=== PATIENT | male | born 1975 | race Caucasian/White ===

== ENCOUNTER 2018-08-29 22:17 | Inpatient (IN) | payer OTHER ==
[2018-08-30] MEDS ORDERED: ONDANSETRON 4 MG INJ IV (01:00)
[2018-08-30 05:46] LABS: ADD MAN DIFF? NO
[2018-08-30 05:59] LABS: WHITE BLOOD COUNT 22.8 10^3/ul (4.8-10.8)
[2018-08-30 05:59] LABS: ABNORMAL IP MESSAGE 1; BASOPHILS % 0.2 % (0.0-2.0); EOSINOPHILS # 0.2 10^3/ul (0.0-0.5); EOSINOPHILS % 1.1 % (0.0-7.0); LYMPHOCYTES # 2.6 10^3/ul (0.8-2.9); LYMPHOCYTES % 11.4 % (15.0-51.0); MEAN CORPUSCULAR HGB CONC 33.3 g/dl (32.0-37.0); MEAN CORPUSCULAR VOLUME 95.9 fl (82.0-101.0); MEAN PLATELET VOLUME 12.5 fl (7.4-10.4); MONOCYTE # 3.4 10^3/ul (0.3-0.9); NEUTROPHILS % 70.1 % (39.0-77.0); PLATELET COUNT 119 10^3/UL (140-415); POSITIVE DIFF @See below; RED BLOOD COUNT 2.19 10^6/ul (4.70-6.10); RED CELL DISTRIBUTION WIDTH 26.3 % (11.5-14.5)
[2018-08-30 06:12] LABS: ALANINE AMINOTRANSFERASE 13 IU/L (13-69); ALBUMIN 2.7 g/dl (3.3-4.9); ALBUMIN/GLOBULIN RATIO 0.81; ALKALINE PHOSPHATASE 83 IU/L (42-121); ANION GAP 11 (5-13); ASPARTATE AMINO TRANSFERASE 38 IU/L (15-46); BILIRUBIN,INDIRECT 5.4 mg/dl (0-1.1); BILIRUBIN,TOTAL 24.1 mg/dl (0.2-1.3); BLOOD UREA NITROGEN 47 mg/dl (7-20); CALCIUM 9.2 mg/dl (8.4-10.2); CARBON DIOXIDE 28 mmol/L (21-31); CHLORIDE 98 mmol/L (97-110); CREATININE 4.98 mg/dl (0.61-1.24); Estimated GFR 13 mL/min (>60); GLUCOSE 109 mg/dl (70-220); POTASSIUM 4.4 mmol/L (3.5-5.1); SODIUM 137 mmol/L (135-144)
[2018-08-30] MEDS: LACTULOSE 30ML CUP PO ×3 (07:06→21:42)
[2018-08-30] MEDS: PANTOPRAZOLE (EC) 40 MG TAB PO (07:06)
[2018-08-30] MEDS: CEFTRIAXONE 1 GM/50 ML (PMX) 50 ML IVPB (07:06)
[2018-08-30] MEDS: DOCUSATE SODIUM 100 MG CAP PO ×2 (08:21→21:42)
[2018-08-30] MEDS: SENNA TAB PO (08:22)
[2018-08-30] MEDS: MIDODRINE 5 MG TAB PO ×3 (08:23→17:44)
[2018-08-30 15:56] LABS: IMMEDIATE SPIN CROSSMATCH 1 1
[2018-08-30] MEDS: CEFEPIME 1GM/50 ML (PMX) 50 ML IVPB (20:00)
[2018-08-30] MEDS: ALBUMIN HUMAN 25% 100 ML IV (21:42)
[2018-08-31] MEDS: CEFEPIME 1GM/50 ML (PMX) 50 ML IVPB ×3 (00:32→22:14)
[2018-08-31 05:28] LABS: ABNORMAL IP MESSAGE 1; HEMATOCRIT 23.7 % (42.0-52.0); HEMOGLOBIN 8.1 g/dl (14.0-18.0); MEAN CORPUSCULAR HEMOGLOBIN 31.5 pg (29.0-33.0); MEAN CORPUSCULAR HGB CONC 34.2 g/dl (32.0-37.0); MEAN CORPUSCULAR VOLUME 92.2 fl (82.0-101.0); MEAN PLATELET VOLUME 12.6 fl (7.4-10.4); PLATELET COUNT 119 10^3/UL (140-415); POSITIVE DIFF @See below; RED BLOOD COUNT 2.57 10^6/ul (4.70-6.10); RED CELL DISTRIBUTION WIDTH 24.5 % (11.5-14.5)
[2018-08-31 05:28] LABS: WHITE BLOOD COUNT 26.2 10^3/ul (4.8-10.8)
[2018-08-31 05:52] LABS: ADD MAN DIFF? YES
[2018-08-31] MEDS: PANTOPRAZOLE (EC) 40 MG TAB PO (05:54)
[2018-08-31] MEDS: LACTULOSE 30ML CUP PO ×3 (05:54→22:14)
[2018-08-31 05:57] LABS: INR 3.51; PROTIME 35.2 Sec (11.9-14.9); PT RATIO 2.8
[2018-08-31 05:58] LABS: MAGNESIUM 1.9 mg/dl (1.7-2.5)
[2018-08-31 05:58] LABS: PHOSPHORUS 4.6 mg/dl (2.5-4.9)
[2018-08-31 06:11] LABS: ANION GAP 12 (5-13); BLOOD UREA NITROGEN 52 mg/dl (7-20); CARBON DIOXIDE 26 mmol/L (21-31); CHLORIDE 98 mmol/L (97-110); CREATININE 5.33 mg/dl (0.61-1.24); Estimated GFR 12 mL/min (>60); GLUCOSE 81 mg/dl (70-220); POTASSIUM 4.8 mmol/L (3.5-5.1); SODIUM 136 mmol/L (135-144)
[2018-08-31 07:11] LABS: ANISOCYTOSIS 2+ (0-0); BAND NEUTROPHILS #M 1.5 10^3/ul (0.0-0.6); BAND NEUTROPHILS % (M) 6 % (0-4); BASOPHIL #M 0.5 10^3/ul (0.0-0.0); BASOPHILS % (M) 2 % (0-2); BURR CELLS 2+ (0-0); LYMPHOCYTES #M 2.6 10^3/ul (0.8-2.9); LYMPHOCYTES % (M) 10 % (15-51); MONOCYTE #M 2.3 10^3/ul (0.3-0.9); MONOCYTES % (M) 9 % (0-11); PLATELET ESTIMATE DECREASED; POIKILOCYTOSIS 3+ (0-0); POLYCHROMASIA 1+ (0-0); SEG NEUT #M 19.5 10^3/ul (1.6-7.5); SEGMENTED NEUTROPHILS (M) % 73 % (39-77); SMUDGE%M 6 % (0-0); SPHEROCYTES 1+ (0-0)
[2018-08-31] MEDS: DOCUSATE SODIUM 100 MG CAP PO (09:00)
[2018-08-31] MEDS: SENNA TAB PO (09:00)
[2018-08-31] MEDS: ALBUMIN HUMAN 25% 100 ML IV ×3 (10:30→18:53)
[2018-08-31] MEDS: MIDODRINE 5 MG TAB PO ×3 (10:59→18:58)
[2018-08-31 13:21] LABS: HEPATITIS B SURFACE ANTIGEN NEGATIVE (NEGATIVE)
[2018-08-31] MEDS ORDERED: DOCUSATE SODIUM 100 MG CAP PO (14:00)
[2018-08-31] MEDS ORDERED: SENNA TAB PO (14:00)
[2018-08-31] MEDS: EPOETIN ALFA-EPBX (ESRD) 4,000 UNIT/ML VIAL SC (18:54)
[2018-08-31] MEDS: PHYTONADIONE 10 MG/ML INJ SC (19:00)
[2018-08-31] MEDS: BALSAM PERU/CASTOR OIL 60 GM TUBE TOP (22:13)
[2018-09-01] MEDS: ALBUMIN HUMAN 25% 100 ML IV (03:38)
[2018-09-01 05:59] LABS: ABNORMAL IP MESSAGE 1; HEMATOCRIT 20.8 % (42.0-52.0); HEMOGLOBIN 7.3 g/dl (14.0-18.0); MEAN CORPUSCULAR HEMOGLOBIN 32.4 pg (29.0-33.0); MEAN CORPUSCULAR HGB CONC 35.1 g/dl (32.0-37.0); MEAN CORPUSCULAR VOLUME 92.4 fl (82.0-101.0); MEAN PLATELET VOLUME 12.4 fl (7.4-10.4); PLATELET COUNT 102 10^3/UL (140-415); POSITIVE DIFF @See below; RED BLOOD COUNT 2.25 10^6/ul (4.70-6.10); RED CELL DISTRIBUTION WIDTH 24.8 % (11.5-14.5)
[2018-09-01 05:59] LABS: WHITE BLOOD COUNT 25.4 10^3/ul (4.8-10.8)
[2018-09-01 06:16] LABS: ADD MAN DIFF? YES
[2018-09-01 06:27] LABS: AMMONIA 22 umol/l (9-30)
[2018-09-01] MEDS: PANTOPRAZOLE (EC) 40 MG TAB PO (06:32)
[2018-09-01] MEDS: LACTULOSE 30ML CUP PO ×3 (06:32→22:00)
[2018-09-01 06:37] LABS: ANION GAP 11 (5-13); BLOOD UREA NITROGEN 44 mg/dl (7-20); CALCIUM 9.4 mg/dl (8.4-10.2); CARBON DIOXIDE 27 mmol/L (21-31); CHLORIDE 98 mmol/L (97-110); CREATININE 4.44 mg/dl (0.61-1.24); Estimated GFR 15 mL/min (>60); GLUCOSE 117 mg/dl (70-220); POTASSIUM 4.8 mmol/L (3.5-5.1); SODIUM 136 mmol/L (135-144)
[2018-09-01 09:14] LABS: ACANTHOCYTES 2+ (0-0); ANISOCYTOSIS 3+ (0-0); BAND NEUTROPHILS #M 0.2 10^3/ul (0.0-0.6); BAND NEUTROPHILS % (M) 1 % (0-4); BASOPHIL #M 0.2 10^3/ul (0.0-0.0); BASOPHILS % (M) 1 % (0-2); BURR CELLS 2+ (0-0); EOSINOPHILS % (M) 3 % (0-7); GIANT THROMBO% (M) 1 % (0-0); HYPOCHROMASIA 1+ (0-0); LYMPHOCYTES #M 3.3 10^3/ul (0.8-2.9); LYMPHOCYTES % (M) 13 % (15-51); MONOCYTE #M 1.2 10^3/ul (0.3-0.9); MONOCYTES % (M) 5 % (0-11); MYELOCYTES #M 0.2 10^3/ul (0.0-0.0); MYELOCYTES % (M) 1 % (0-0); PLATELET ESTIMATE DECREASED; POIKILOCYTOSIS 3+ (0-0); POLYCHROMASIA 1+ (0-0); SCHISTOCYTES 1+ (0-0); SEG NEUT #M 19.4 10^3/ul (1.6-7.5); SEGMENTED NEUTROPHILS (M) % 76 % (39-77); SMUDGE%M 5 % (0-0); TARGET CELLS 2+ (0-0)
[2018-09-01] MEDS: MIDODRINE 5 MG TAB PO ×3 (10:36→19:12)
[2018-09-01] MEDS: BALSAM PERU/CASTOR OIL 60 GM TUBE TOP ×2 (10:37→21:15)
[2018-09-01] MEDS: CEFEPIME 1GM/50 ML (PMX) 50 ML IVPB ×2 (10:37→21:15)
[2018-09-01] MEDS: MULTIVIT/CA CARB/B CMPLX/FA TAB PO (10:37)
[2018-09-02 05:18] LABS: WHITE BLOOD COUNT 27.7 10^3/ul (4.8-10.8)
[2018-09-02 05:18] LABS: ABNORMAL IP MESSAGE 1; HEMOGLOBIN 7.3 g/dl (14.0-18.0); MEAN CORPUSCULAR HEMOGLOBIN 32.2 pg (29.0-33.0); MEAN CORPUSCULAR HGB CONC 34.8 g/dl (32.0-37.0); MEAN CORPUSCULAR VOLUME 92.5 fl (82.0-101.0); MEAN PLATELET VOLUME 12.8 fl (7.4-10.4); PLATELET COUNT 108 10^3/UL (140-415); POSITIVE DIFF @See below; RED BLOOD COUNT 2.27 10^6/ul (4.70-6.10); RED CELL DISTRIBUTION WIDTH 24.9 % (11.5-14.5)
[2018-09-02 05:30] LABS: ADD MAN DIFF? YES
[2018-09-02 05:48] LABS: ALANINE AMINOTRANSFERASE 12 IU/L (13-69); ALBUMIN 2.8 g/dl (3.3-4.9); ALKALINE PHOSPHATASE 105 IU/L (42-121); ANION GAP 16 (5-13); ASPARTATE AMINO TRANSFERASE 40 IU/L (15-46); BILIRUBIN,INDIRECT 5.5 mg/dl (0-1.1); BILIRUBIN,TOTAL 25.3 mg/dl (0.2-1.3); BLOOD UREA NITROGEN 50 mg/dl (7-20); CALCIUM 9.4 mg/dl (8.4-10.2); CARBON DIOXIDE 23 mmol/L (21-31); CHLORIDE 98 mmol/L (97-110); CREATININE 5.19 mg/dl (0.61-1.24); Estimated GFR 12 mL/min (>60); GLUCOSE 85 mg/dl (70-220); POTASSIUM 4.9 mmol/L (3.5-5.1); SODIUM 137 mmol/L (135-144); TOTAL PROTEIN 6.3 g/dl (6.1-8.1)
[2018-09-02] MEDS: PANTOPRAZOLE (EC) 40 MG TAB PO (06:48)
[2018-09-02] MEDS: LACTULOSE 30ML CUP PO ×3 (06:48→21:23)
[2018-09-02 07:11] LABS: ACANTHOCYTES 1+ (0-0); ANISOCYTOSIS 3+ (0-0); BAND NEUTROPHILS #M 0.5 10^3/ul (0.0-0.6); BAND NEUTROPHILS % (M) 2 % (0-4); BASOPHIL #M 0.5 10^3/ul (0.0-0.0); BASOPHILS % (M) 2 % (0-2); BURR CELLS 3+ (0-0); EOSINOPHILS % (M) 1 % (0-7); LYMPHOCYTES #M 2.7 10^3/ul (0.8-2.9); LYMPHOCYTES % (M) 10 % (15-51); METAMYELOCYTES #M 0.2 10^3/ul (0.0-0.0); METAMYELOCYTES %M 1 % (0-0); MICROCYTOSIS 1+ (0-0); MONOCYTE #M 1.6 10^3/ul (0.3-0.9); MONOCYTES % (M) 6 % (0-11); PLATELET ESTIMATE DECREASED; POIKILOCYTOSIS 3+ (0-0); SCHISTOCYTES 1+ (0-0); SEG NEUT #M 21.7 10^3/ul (1.6-7.5); SEGMENTED NEUTROPHILS (M) % 78 % (39-77); SMUDGE%M 8 % (0-0); TARGET CELLS 1+ (0-0)
[2018-09-02] MEDS: CEFEPIME 1GM/50 ML (PMX) 50 ML IVPB ×2 (08:28→21:22)
[2018-09-02] MEDS: MULTIVIT/CA CARB/B CMPLX/FA TAB PO (08:29)
[2018-09-02] MEDS: BALSAM PERU/CASTOR OIL 60 GM TUBE TOP ×2 (08:29→21:23)
[2018-09-02] MEDS: MIDODRINE 5 MG TAB PO ×3 (08:29→17:57)
[2018-09-02 12:03] LABS: ALPHA FETOPROTEIN 1.28 IU/L (0.00-7.21)
[2018-09-02 15:53] LABS: INR 3.05; PROTIME 31.6 Sec (11.9-14.9); PT RATIO 2.5
[2018-09-02 16:05] LABS: PARTIAL THROMBOPLASTIN TIME 92.6 Sec (23.0-35.0)
[2018-09-02] MEDS: PHYTONADIONE 10 MG/ML INJ SC (17:57)
[2018-09-03] MEDS: PANTOPRAZOLE (EC) 40 MG TAB PO (06:28)
[2018-09-03] MEDS: LACTULOSE 30ML CUP PO ×3 (06:28→20:33)
[2018-09-03] MEDS: CEFEPIME 1GM/50 ML (PMX) 50 ML IVPB ×2 (08:15→20:33)
[2018-09-03] MEDS: BALSAM PERU/CASTOR OIL 60 GM TUBE TOP ×2 (08:16→20:33)
[2018-09-03] MEDS: MIDODRINE 5 MG TAB PO ×3 (08:16→16:42)
[2018-09-03] MEDS: MULTIVIT/CA CARB/B CMPLX/FA TAB PO (08:16)
[2018-09-03 08:19] LABS: ADD MAN DIFF? NO
[2018-09-03 08:21] LABS: WHITE BLOOD COUNT 26.1 10^3/ul (4.8-10.8)
[2018-09-03 08:21] LABS: HEMATOCRIT 18.9 % (42.0-52.0); MEAN CORPUSCULAR HEMOGLOBIN 32.8 pg (29.0-33.0); MEAN CORPUSCULAR HGB CONC 34.9 g/dl (32.0-37.0); PLATELET COUNT 91 10^3/UL (140-415); RED BLOOD COUNT 2.01 10^6/ul (4.70-6.10); RED CELL DISTRIBUTION WIDTH 25.3 % (11.5-14.5)
[2018-09-03 08:22] LABS: ABNORMAL IP MESSAGE 1; BASOPHIL # 0.1 10^3/ul (0.0-0.1); BASOPHILS % 0.2 % (0.0-2.0); EOSINOPHILS # 0.3 10^3/ul (0.0-0.5); LYMPHOCYTES # 2.8 10^3/ul (0.8-2.9); LYMPHOCYTES % 10.8 % (15.0-51.0); MONOCYTES % 11.3 % (0.0-11.0); NEUTROPHIL # 19.6 10^3/ul (1.6-7.5); POSITIVE DIFF @See below
[2018-09-03 08:28] LABS: HEMOGLOBIN 6.6 g/dl (14.0-18.0)
[2018-09-03 08:41] LABS: INR 3.15; PROTIME 32.4 Sec (11.9-14.9); PT RATIO 2.5
[2018-09-03 08:50] LABS: ALANINE AMINOTRANSFERASE 16 IU/L (13-69); ALBUMIN 2.8 g/dl (3.3-4.9); ALBUMIN/GLOBULIN RATIO 0.77; ALKALINE PHOSPHATASE 96 IU/L (42-121); ANION GAP 16 (5-13); ASPARTATE AMINO TRANSFERASE 41 IU/L (15-46); BILIRUBIN,TOTAL 24.7 mg/dl (0.2-1.3); BLOOD UREA NITROGEN 57 mg/dl (7-20); CALCIUM 9.7 mg/dl (8.4-10.2); CARBON DIOXIDE 22 mmol/L (21-31); CHLORIDE 98 mmol/L (97-110); CREATININE 5.76 mg/dl (0.61-1.24); Estimated GFR 11 mL/min (>60); GLUCOSE 69 mg/dl (70-220); POTASSIUM 4.9 mmol/L (3.5-5.1); SODIUM 136 mmol/L (135-144); TOTAL PROTEIN 6.4 g/dl (6.1-8.1)
[2018-09-03 08:52] LABS: PARTIAL THROMBOPLASTIN TIME 100.8 Sec (23.0-35.0)
[2018-09-03] MEDS: SOD CHLORIDE 0.9% 250 ML IV* (09:12)
[2018-09-03 11:43] LABS: IMMEDIATE SPIN CROSSMATCH 1
[2018-09-03] MEDS: ALBUMIN HUMAN 25% 100 ML IV (12:00)
[2018-09-03] MEDS: EPOETIN ALFA-EPBX (ESRD) 4,000 UNIT/ML VIAL SC (16:43)
[2018-09-03 22:32] LABS: AADO2 Arterial 122.3 mmHg (7.0-24.0); Arterial Base Excess -0.8 mmol/L (-3.0-3); Arterial Blood Gas Oxygen Sat 96.2 mmHG (95.0-98.0); Arterial COHb 2.5 % (0.0-3.0); Arterial Fraction of Oxyhgb 93.6 % (93.0-99.0); Arterial MetHb 0.2 % (0.0-1.5); Arterial pCO2 40.4 mmhg (35-45); MODE NASAL CANNULA; Site LB
[2018-09-03] MEDS: LEVALBUTEROL (NEB) 0.63 MG/3 ML AMP HHN (22:42)
[2018-09-04] MEDS: LACTULOSE 30ML CUP PO ×3 (06:00→21:03)
[2018-09-04 06:11] LABS: ADD MAN DIFF? NO
[2018-09-04 06:22] LABS: WHITE BLOOD COUNT 24.7 10^3/ul (4.8-10.8)
[2018-09-04 06:22] LABS: ABNORMAL IP MESSAGE 1; BASOPHIL # 0.1 10^3/ul (0.0-0.1); BASOPHILS % 0.4 % (0.0-2.0); EOSINOPHILS # 0.2 10^3/ul (0.0-0.5); EOSINOPHILS % 0.9 % (0.0-7.0); HEMOGLOBIN 7.7 g/dl (14.0-18.0); LYMPHOCYTES # 2.5 10^3/ul (0.8-2.9); LYMPHOCYTES % 10.3 % (15.0-51.0); MEAN CORPUSCULAR HEMOGLOBIN 32.2 pg (29.0-33.0); MEAN CORPUSCULAR VOLUME 92.1 fl (82.0-101.0); MEAN PLATELET VOLUME 13.2 fl (7.4-10.4); MONOCYTE # 3.3 10^3/ul (0.3-0.9); MONOCYTES % 13.3 % (0.0-11.0); NEUTROPHIL # 18.1 10^3/ul (1.6-7.5); NEUTROPHILS % 73.1 % (39.0-77.0); PLATELET COUNT 79 10^3/UL (140-415); POSITIVE DIFF @See below; RED BLOOD COUNT 2.39 10^6/ul (4.70-6.10); RED CELL DISTRIBUTION WIDTH 22.3 % (11.5-14.5)
[2018-09-04] MEDS: PANTOPRAZOLE (EC) 40 MG TAB PO (06:44)
[2018-09-04 06:53] LABS: PHOSPHORUS 4.1 mg/dl (2.5-4.9)
[2018-09-04 07:18] LABS: ALANINE AMINOTRANSFERASE 14 IU/L (13-69); ALBUMIN 2.8 g/dl (3.3-4.9); ALBUMIN/GLOBULIN RATIO 0.77; ALKALINE PHOSPHATASE 81 IU/L (42-121); ANION GAP 13 (5-13); ASPARTATE AMINO TRANSFERASE 42 IU/L (15-46); BILIRUBIN,INDIRECT 5.6 mg/dl (0-1.1); BLOOD UREA NITROGEN 38 mg/dl (7-20); CALCIUM 9.1 mg/dl (8.4-10.2); CARBON DIOXIDE 26 mmol/L (21-31); CHLORIDE 98 mmol/L (97-110); CREATININE 3.91 mg/dl (0.61-1.24); Estimated GFR 17 mL/min (>60); GLUCOSE 116 mg/dl (70-220); SODIUM 137 mmol/L (135-144); TOTAL PROTEIN 6.4 g/dl (6.1-8.1)
[2018-09-04 07:42] LABS: BILIRUBIN,TOTAL 26.5 mg/dl (0.2-1.3)
[2018-09-04 08:00] LABS: ANISOCYTOSIS 2+ (0-0); BAND NEUTROPHILS #M 1.7 10^3/ul (0.0-0.6); BAND NEUTROPHILS % (M) 7 % (0-4); BASOPHIL #M 0.2 10^3/ul (0.0-0.0); BASOPHILS % (M) 1 % (0-2); BURR CELLS 3+ (0-0); HYPOCHROMASIA 1+ (0-0); LYMPHOCYTES #M 2.2 10^3/ul (0.8-2.9); LYMPHOCYTES % (M) 9 % (15-51); MICROCYTOSIS 1+ (0-0); MONOCYTE #M 1.2 10^3/ul (0.3-0.9); MONOCYTES % (M) 5 % (0-11); PLATELET ESTIMATE DECREASED; POIKILOCYTOSIS 3+ (0-0); POLYCHROMASIA 2+ (0-0); REACTIVE LYMPHOCYTES #M 0.4 10^3/ul (0.0-0.0); REACTIVE LYMPHOCYTES% (M) 2 % (0-0); SEG NEUT #M 19.2 10^3/ul (1.6-7.5); SEGMENTED NEUTROPHILS (M) % 76 % (39-77); SPHEROCYTES 1+ (0-0)
[2018-09-04] MEDS: MULTIVIT/CA CARB/B CMPLX/FA TAB PO (08:36)
[2018-09-04] MEDS: CEFEPIME 1GM/50 ML (PMX) 50 ML IVPB (08:36)
[2018-09-04] MEDS: BALSAM PERU/CASTOR OIL 60 GM TUBE TOP ×2 (08:36→20:46)
[2018-09-04] MEDS: MIDODRINE 5 MG TAB PO ×3 (08:36→18:23)
[2018-09-04] MEDS: BUMETANIDE 1 MG INJ IV (12:00)
[2018-09-04] MEDS: PHYTONADIONE 10 MG/ML INJ SC (12:33)
[2018-09-04] MEDS: ALBUMIN HUMAN 25% 100 ML IV ×2 (12:34→20:47)
[2018-09-04 12:56] LABS: INR 3.28; PROTIME 33.4 Sec (11.9-14.9); PT RATIO 2.6
[2018-09-04 13:14] LABS: PARTIAL THROMBOPLASTIN TIME 88.3 Sec (23.0-35.0)
[2018-09-04] MEDS: PHYTONADIONE 5 MG in DEXTROSE 5% 50 ML IVPB (18:34)
[2018-09-05] MEDS: ALBUMIN HUMAN 25% 100 ML IV ×3 (04:02→18:06)
[2018-09-05] MEDS: LACTULOSE 30ML CUP PO ×3 (05:16→21:18)
[2018-09-05] MEDS: HYDROCODONE/APAP (5/325) TAB PO (05:16)
[2018-09-05] MEDS: PANTOPRAZOLE (EC) 40 MG TAB PO (05:16)
[2018-09-05] MEDS: LEVALBUTEROL (NEB) 0.63 MG/3 ML AMP HHN (05:40)
[2018-09-05 06:01] LABS: WHITE BLOOD COUNT 28.3 10^3/ul (4.8-10.8)
[2018-09-05 06:01] LABS: ABNORMAL IP MESSAGE 1; HEMATOCRIT 20.1 % (42.0-52.0); MEAN CORPUSCULAR HEMOGLOBIN 32.4 pg (29.0-33.0); MEAN CORPUSCULAR HGB CONC 34.8 g/dl (32.0-37.0); MEAN CORPUSCULAR VOLUME 93.1 fl (82.0-101.0); MEAN PLATELET VOLUME 12.5 fl (7.4-10.4); PLATELET COUNT 69 10^3/UL (140-415); POSITIVE DIFF @See below; RED BLOOD COUNT 2.16 10^6/ul (4.70-6.10); RED CELL DISTRIBUTION WIDTH 22.4 % (11.5-14.5)
[2018-09-05 06:08] LABS: AADO2 Arterial 583.1 mmHg (7.0-24.0); Allen Test ACCEPTAB; Arterial Base Excess -15.2 mmol/L (-3.0-3); Arterial Blood Gas Oxygen Sat 87.4 mmHG (95.0-98.0); Arterial COHb 1.8 % (0.0-3.0); Arterial Fraction of Oxyhgb 85.2 % (93.0-99.0); Arterial HCO3 13.7 mmol/L (22.0-26.0); Arterial MetHb 0.7 % (0.0-1.5); Arterial pCO2 53.2 mmhg (35-45); MODE MASK - NRB; Site Right Radial
[2018-09-05 06:11] LABS: ADD MAN DIFF? YES
[2018-09-05 06:17] LABS: PHOSPHORUS 4.5 mg/dl (2.5-4.9)
[2018-09-05 06:17] LABS: INR 2.81; MAGNESIUM 1.9 mg/dl (1.7-2.5); PROTIME 29.6 Sec (11.9-14.9); PT RATIO 2.3
[2018-09-05] MEDS ORDERED: NA BICARBONATE 8.4% 50 ML SYG (06:23)
[2018-09-05 06:29] LABS: ALANINE AMINOTRANSFERASE 15 IU/L (13-69); ALBUMIN/GLOBULIN RATIO 0.83; ALKALINE PHOSPHATASE 98 IU/L (42-121); ANION GAP 19 (5-13); ASPARTATE AMINO TRANSFERASE 38 IU/L (15-46); BILIRUBIN,INDIRECT 5.7 mg/dl (0-1.1); BILIRUBIN,TOTAL 25.7 mg/dl (0.2-1.3); BLOOD UREA NITROGEN 43 mg/dl (7-20); CALCIUM 9.4 mg/dl (8.4-10.2); CARBON DIOXIDE 22 mmol/L (21-31); CHLORIDE 97 mmol/L (97-110); CREATININE 4.32 mg/dl (0.61-1.24); Estimated GFR 15 mL/min (>60); GLUCOSE 115 mg/dl (70-220); POTASSIUM 4.3 mmol/L (3.5-5.1); SODIUM 138 mmol/L (135-144); TOTAL PROTEIN 6.6 g/dl (6.1-8.1)
[2018-09-05] MEDS: LIDOCAINE 1% (MPF) 5 ML VIAL SC (06:30)
[2018-09-05] MEDS: NA BICARBONATE 8.4% 50 ML SYG IV ×2 (06:53→06:58)
[2018-09-05 07:03] LABS: PARTIAL THROMBOPLASTIN TIME 85.3 Sec (23.0-35.0)
[2018-09-05 07:10] LABS: WHITE BLOOD COUNT 32.4 10^3/ul (4.8-10.8)
[2018-09-05 07:10] LABS: ABNORMAL IP MESSAGE 1; HEMATOCRIT 21.4 % (42.0-52.0); HEMOGLOBIN 7.2 g/dl (14.0-18.0); MEAN CORPUSCULAR HEMOGLOBIN 32.3 pg (29.0-33.0); MEAN CORPUSCULAR HGB CONC 33.6 g/dl (32.0-37.0); MEAN PLATELET VOLUME 12.6 fl (7.4-10.4); NUCLEATED RED BLOOD CELLS% 0.1 /100WBC (0.0-0.0); PLATELET COUNT 77 10^3/UL (140-415); POSITIVE DIFF @See below; RED BLOOD COUNT 2.23 10^6/ul (4.70-6.10); RED CELL DISTRIBUTION WIDTH 23.2 % (11.5-14.5)
[2018-09-05 07:18] LABS: ADD MAN DIFF? YES
[2018-09-05 07:28] LABS: AMMONIA 90 umol/l (9-30)
[2018-09-05 07:29] LABS: ALANINE AMINOTRANSFERASE 14 IU/L (13-69); ALBUMIN 3.6 g/dl (3.3-4.9); ALKALINE PHOSPHATASE 99 IU/L (42-121); ANION GAP 20 (5-13); ASPARTATE AMINO TRANSFERASE 41 IU/L (15-46); BLOOD UREA NITROGEN 43 mg/dl (7-20); CALCIUM 9.3 mg/dl (8.4-10.2); CARBON DIOXIDE 26 mmol/L (21-31); CHLORIDE 95 mmol/L (97-110); CREATININE 4.57 mg/dl (0.61-1.24); Estimated GFR 14 mL/min (>60); GLUCOSE 114 mg/dl (70-220); POTASSIUM 5.2 mmol/L (3.5-5.1); SODIUM 141 mmol/L (135-144); TOTAL PROTEIN 7.6 g/dl (6.1-8.1)
[2018-09-05] MEDS: MIDAZOLAM (DRIP) 50 mg/50 mL 50 ML IV ×3 (07:29→21:44)
[2018-09-05 07:31] LABS: LACTIC ACID 4.3 mmol/L (0.5-2.0)
[2018-09-05] MEDS: FENTAnyl (DRIP) 1000 mcg/100mL 100 ML IV ×2 (07:40→21:48)
[2018-09-05 07:47] LABS: ANISOCYTOSIS 3+ (0-0); BAND NEUTROPHILS #M 0.2 10^3/ul (0.0-0.6); BAND NEUTROPHILS % (M) 1 % (0-4); BASOPHIL #M 0.2 10^3/ul (0.0-0.0); BASOPHILS % (M) 1 % (0-2); BURR CELLS 2+ (0-0); EOSINOPHILS % (M) 2 % (0-7); GIANT THROMBO% (M) 3 % (0-0); LYMPHOCYTES #M 2.8 10^3/ul (0.8-2.9); LYMPHOCYTES % (M) 10 % (15-51); MONOCYTE #M 1.4 10^3/ul (0.3-0.9); MONOCYTES % (M) 5 % (0-11); PLATELET ESTIMATE DECREASED; POIKILOCYTOSIS 2+ (0-0); SEGMENTED NEUTROPHILS (M) % 81 % (39-77); SMUDGE%M 7 % (0-0); TARGET CELLS 1+ (0-0)
[2018-09-05 07:48] LABS: BILIRUBIN,INDIRECT 5.9 mg/dl (0-1.1); BILIRUBIN,TOTAL 28.4 mg/dl (0.2-1.3)
[2018-09-05] MEDS: NORepinephrine 8MG/250 ML (PMX 250 ML IV ×2 (08:07→13:53)
[2018-09-05 08:21] LABS: ANISOCYTOSIS 3+ (0-0); BURR CELLS 3+ (0-0); EOSINOPHILS % (M) 2 % (0-7); LYMPHOCYTES #M 6.4 10^3/ul (0.8-2.9); LYMPHOCYTES % (M) 20 % (15-51); MONOCYTE #M 0.6 10^3/ul (0.3-0.9); MONOCYTES % (M) 2 % (0-11); MYELOCYTES #M 1.2 10^3/ul (0.0-0.0); MYELOCYTES % (M) 4 % (0-0); PLATELET ESTIMATE DECREASED; POIKILOCYTOSIS 3+ (0-0); SEGMENTED NEUTROPHILS (M) % 72 % (39-77); SMUDGE%M 9 % (0-0); TARGET CELLS 1+ (0-0)
[2018-09-05] MEDS ORDERED: VANCOMYCIN IV PER PHARMACY XX (08:30)
[2018-09-05 08:53] LABS: AADO2 Arterial 532.8 mmHg (7.0-24.0); Allen Test ACCEPTAB; Arterial Base Excess -2.5 mmol/L (-3.0-3); Arterial Blood Gas Oxygen Sat 99.1 mmHG (95.0-98.0); Arterial COHb 2.2 % (0.0-3.0); Arterial Fraction of Oxyhgb 96.3 % (93.0-99.0); Arterial HCO3 22.2 mmol/L (22.0-26.0); Arterial MetHb 0.6 % (0.0-1.5); Arterial pCO2 37.3 mmhg (35-45); MODE VENT - AC; Site Right Brachial
[2018-09-05] MEDS: MULTIVIT/CA CARB/B CMPLX/FA TAB PO (09:00)
[2018-09-05] MEDS: MIDODRINE 5 MG TAB PO ×3 (09:00→17:29)
[2018-09-05] MEDS: CEFEPIME 1GM/50 ML (PMX) 50 ML IVPB (09:23)
[2018-09-05] MEDS: BALSAM PERU/CASTOR OIL 60 GM TUBE TOP ×2 (09:23→21:18)
[2018-09-05] MEDS: VANCOMYCIN HCL 1.5 GM in SOD CHLORIDE 0.9% 250 ML IVPB (10:30)
[2018-09-05] MEDS: BUMETANIDE 1 MG INJ IV ×2 (11:16→18:03)
[2018-09-05] MEDS: PHYTONADIONE 10 MG/ML INJ SC (11:16)
[2018-09-05 11:53] LABS: IMMEDIATE SPIN CROSSMATCH 1 4
[2018-09-05 13:21] LABS: IMMEDIATE SPIN CROSSMATCH 1
[2018-09-05] MEDS: EPOETIN ALFA-EPBX (ESRD) 4,000 UNIT/ML VIAL SC (17:00)
[2018-09-05] MEDS: LIDOCAINE 1% (MPF) 5 ML VIAL (17:13)
[2018-09-05 17:22] LABS: ADD MAN DIFF? NO
[2018-09-05 17:24] LABS: ABNORMAL IP MESSAGE 1; BASOPHILS % 0.2 % (0.0-2.0); EOSINOPHILS # 0.1 10^3/ul (0.0-0.5); EOSINOPHILS % 0.4 % (0.0-7.0); HEMATOCRIT 15.9 % (42.0-52.0); LYMPHOCYTES # 2.1 10^3/ul (0.8-2.9); MEAN CORPUSCULAR HEMOGLOBIN 33.1 pg (29.0-33.0); MEAN CORPUSCULAR HGB CONC 35.2 g/dl (32.0-37.0); MEAN CORPUSCULAR VOLUME 94.1 fl (82.0-101.0); MEAN PLATELET VOLUME 13.3 fl (7.4-10.4); MONOCYTE # 2.5 10^3/ul (0.3-0.9); MONOCYTES % 9.3 % (0.0-11.0); NEUTROPHIL # 21.4 10^3/ul (1.6-7.5); NEUTROPHILS % 80.1 % (39.0-77.0); PLATELET COUNT 66 10^3/UL (140-415); POSITIVE DIFF @See below; RED BLOOD COUNT 1.69 10^6/ul (4.70-6.10); RED CELL DISTRIBUTION WIDTH 22.6 % (11.5-14.5)
[2018-09-05 17:24] LABS: WHITE BLOOD COUNT 26.6 10^3/ul (4.8-10.8)
[2018-09-05 17:32] LABS: HEMOGLOBIN 5.6 g/dl (14.0-18.0)
[2018-09-05 17:45] LABS: INR 2.14; PT RATIO 1.9
[2018-09-05] MEDS: PANTOPRAZOLE 40 MG INJ IV (18:03)
[2018-09-05 18:18] LABS: FLUID GLUCOSE 75 mg/dl; FLUID LD 414 U/L; FLUID TYPE ASCITES FLUID; FLUID TYPE ASCITIES FLUID
[2018-09-05 18:19] LABS: FLUID TOTAL PROTEIN 2.6 g/dl
[2018-09-05 18:28] LABS: ACANTHOCYTES 2+ (0-0); ANISOCYTOSIS 2+ (0-0); BAND NEUTROPHILS #M 0.2 10^3/ul (0.0-0.6); BAND NEUTROPHILS % (M) 1 % (0-4); ECHINOCYTOSIS 1+ (0-0); ELLIPTO 1+ (0-0); LYMPHOCYTES #M 2.1 10^3/ul (0.8-2.9); LYMPHOCYTES % (M) 8 % (15-51); MONOCYTE #M 2.9 10^3/ul (0.3-0.9); MONOCYTES % (M) 11 % (0-11); OVALOCYTES 1+ (0-0); POIKILOCYTOSIS 2+ (0-0); PROMYELOCYTES #M 0.5 10^3/ul (0-0); PROMYELOCYTES % (M) 2 % (0-0); SCHISTOCYTES 1+ (0-0); SEG NEUT #M 20.8 10^3/ul (1.6-7.5); SEGMENTED NEUTROPHILS (M) % 78 % (39-77); SMUDGE%M 53 % (0-0)
[2018-09-05 18:42] LABS: FLD TYPE ASCITIS
[2018-09-05 18:42] LABS: FLD CLARITY CLOUDY; FLD COLOR RED; FLD MN% 28.3 %; FLD PMN% 71.7 %; FLD RBC 137000 /uL; FLD WBC 954 /cmm
[2018-09-05] MEDS: SUCCINYLCHOLINE CHLORIDE 100 MG/5 ML SYG IV (20:10)
[2018-09-05] MEDS: ETOMIDATE 20 MG INJ IV (20:10)
[2018-09-06] MEDS: NORepinephrine 8MG/250 ML (PMX 250 ML IV ×4 (00:43→20:06)
[2018-09-06 01:41] LABS: INR 2.36; PROTIME 25.9 Sec (11.9-14.9)
[2018-09-06 01:47] LABS: PARTIAL THROMBOPLASTIN TIME 70.7 Sec (23.0-35.0)
[2018-09-06] MEDS: ALBUMIN HUMAN 25% 100 ML IV ×3 (02:24→17:46)
[2018-09-06 05:57] LABS: WHITE BLOOD COUNT 29.3 10^3/ul (4.8-10.8)
[2018-09-06 05:57] LABS: ABNORMAL IP MESSAGE 1; HEMATOCRIT 22.4 % (42.0-52.0); HEMOGLOBIN 7.8 g/dl (14.0-18.0); MEAN CORPUSCULAR HEMOGLOBIN 31.2 pg (29.0-33.0); MEAN CORPUSCULAR HGB CONC 34.8 g/dl (32.0-37.0); MEAN CORPUSCULAR VOLUME 89.6 fl (82.0-101.0); MEAN PLATELET VOLUME 13.2 fl (7.4-10.4); PLATELET COUNT 61 10^3/UL (140-415); POSITIVE DIFF @See below; RED CELL DISTRIBUTION WIDTH 19.5 % (11.5-14.5)
[2018-09-06 06:09] LABS: ADD MAN DIFF? YES
[2018-09-06 06:13] LABS: ALANINE AMINOTRANSFERASE 10 IU/L (13-69); ALBUMIN/GLOBULIN RATIO 1.14; ALKALINE PHOSPHATASE 94 IU/L (42-121); ANION GAP 21 (5-13); ASPARTATE AMINO TRANSFERASE 47 IU/L (15-46); BILIRUBIN,INDIRECT 7.7 mg/dl (0-1.1); BLOOD UREA NITROGEN 35 mg/dl (7-20); CALCIUM 10.3 mg/dl (8.4-10.2); CARBON DIOXIDE 24 mmol/L (21-31); CHLORIDE 95 mmol/L (97-110); Estimated GFR 19 mL/min (>60); GLUCOSE 53 mg/dl (70-220); POTASSIUM 3.8 mmol/L (3.5-5.1); SODIUM 140 mmol/L (135-144); TOTAL PROTEIN 7.5 g/dl (6.1-8.1)
[2018-09-06 06:21] LABS: BILIRUBIN,TOTAL 27.3 mg/dl (0.2-1.3)
[2018-09-06 06:30] LABS: PROTIME 24.5 Sec (11.9-14.9); PT RATIO 1.9
[2018-09-06] MEDS: BUMETANIDE 1 MG INJ IV ×2 (06:38→17:46)
[2018-09-06] MEDS: LACTULOSE 30ML CUP PO ×3 (06:38→21:10)
[2018-09-06] MEDS: PANTOPRAZOLE 40 MG INJ IV ×2 (06:38→17:45)
[2018-09-06 08:42] LABS: ACANTHOCYTES 1+ (0-0); ANISOCYTOSIS 2+ (0-0); BAND NEUTROPHILS % (M) 7 % (0-4); BASOPHIL #M 0.2 10^3/ul (0.0-0.0); BASOPHILS % (M) 1 % (0-2); BURR CELLS 2+ (0-0); EOSINOPHILS % (M) 1 % (0-7); LYMPHOCYTES #M 1.4 10^3/ul (0.8-2.9); LYMPHOCYTES % (M) 5 % (15-51); MICROCYTOSIS 1+ (0-0); MONOCYTE #M 1.4 10^3/ul (0.3-0.9); MONOCYTES % (M) 5 % (0-11); MYELOCYTES #M 1.1 10^3/ul (0.0-0.0); MYELOCYTES % (M) 4 % (0-0); PLATELET ESTIMATE DECREASED; POIKILOCYTOSIS 3+ (0-0); POLYCHROMASIA 1+ (0-0); PROMYELOCYTES #M 0.2 10^3/ul (0-0); PROMYELOCYTES % (M) 1 % (0-0); SEG NEUT #M 22.9 10^3/ul (1.6-7.5); SEGMENTED NEUTROPHILS (M) % 76 % (39-77); SMUDGE%M 21 % (0-0)
[2018-09-06] MEDS: MULTIVIT/CA CARB/B CMPLX/FA TAB PO (08:43)
[2018-09-06] MEDS: MIDODRINE 5 MG TAB PO ×3 (08:43→17:46)
[2018-09-06] MEDS: CEFEPIME 1GM/50 ML (PMX) 50 ML IVPB (08:43)
[2018-09-06] MEDS: BALSAM PERU/CASTOR OIL 60 GM TUBE TOP ×2 (08:43→21:10)
[2018-09-06 11:52] LABS: IRON 101 ug/dl (35-150)
[2018-09-06 12:02] LABS: % IRON SATURATION 81 % SAT (22-52); TOTAL IRON BINDING CAPACITY 124 ug/dl (241-421)
[2018-09-06] MEDS: MEROPENEM 500MG/50 ML (PMX) 50 ML IVPB ×2 (13:23→21:10)
[2018-09-06 13:46] LABS: FOLATE > 20.0 ng/ml (2.8-20.0)
[2018-09-06] MEDS: FENTAnyl (DRIP) 1000 mcg/100mL 100 ML IV (17:54)
[2018-09-06] MEDS: RIFAXIMIN 550 MG TAB PO (21:10)
[2018-09-07] MEDS: ALBUMIN HUMAN 25% 100 ML IV ×3 (01:30→23:13)
[2018-09-07] MEDS: NORepinephrine 8MG/250 ML (PMX 250 ML IV ×5 (02:42→22:11)
[2018-09-07 06:08] LABS: PLATELET COUNT 61 10^3/UL (140-415)
[2018-09-07 06:19] LABS: WHITE BLOOD COUNT 25.4 10^3/ul (4.8-10.8)
[2018-09-07 06:19] LABS: ABNORMAL IP MESSAGE 1; HEMATOCRIT 16.2 % (42.0-52.0); MEAN CORPUSCULAR HEMOGLOBIN 32.2 pg (29.0-33.0); MEAN CORPUSCULAR HGB CONC 35.2 g/dl (32.0-37.0); MEAN CORPUSCULAR VOLUME 91.5 fl (82.0-101.0); MEAN PLATELET VOLUME 12.9 fl (7.4-10.4); NUCLEATED RED BLOOD CELLS% 0.1 /100WBC (0.0-0.0); PLATELET COUNT 69 10^3/UL (140-415); POSITIVE DIFF @See below; PROTIME 38.2 Sec (11.9-14.9); RED BLOOD COUNT 1.77 10^6/ul (4.70-6.10)
[2018-09-07 06:21] LABS: ADD MAN DIFF? YES; HEMOGLOBIN 5.7 g/dl (14.0-18.0)
[2018-09-07 06:25] LABS: THROMBIN TIME 20.6 SEC (13.8-19.1)
[2018-09-07 06:26] LABS: INR 3.91; PROTIME 38.3 Sec (11.9-14.9)
[2018-09-07 06:30] LABS: ALANINE AMINOTRANSFERASE 9 IU/L (13-69); ALBUMIN 3.9 g/dl (3.3-4.9); ALBUMIN/GLOBULIN RATIO 1.25; ALKALINE PHOSPHATASE 99 IU/L (42-121); ANION GAP 23 (5-13); ASPARTATE AMINO TRANSFERASE 71 IU/L (15-46); BILIRUBIN,INDIRECT 7.2 mg/dl (0-1.1); BILIRUBIN,TOTAL 26.1 mg/dl (0.2-1.3); BLOOD UREA NITROGEN 39 mg/dl (7-20); CALCIUM 10.5 mg/dl (8.4-10.2); CARBON DIOXIDE 21 mmol/L (21-31); CHLORIDE 99 mmol/L (97-110); CREATININE 4.02 mg/dl (0.61-1.24); Estimated GFR 17 mL/min (>60); POTASSIUM 4.6 mmol/L (3.5-5.1); SODIUM 143 mmol/L (135-144)
[2018-09-07 06:31] LABS: VANCOMYCIN,RANDOM 12.8 ug/ml
[2018-09-07 06:40] LABS: PARTIAL THROMBOPLASTIN TIME 97.4 Sec (23.0-35.0)
[2018-09-07 06:44] LABS: D-DIMER > 10000.00 ng/ml (<460)
[2018-09-07] MEDS: LACTULOSE 30ML CUP PO ×3 (06:45→21:59)
[2018-09-07] MEDS: BUMETANIDE 1 MG INJ IV (06:45)
[2018-09-07] MEDS: PANTOPRAZOLE 40 MG INJ IV ×2 (06:45→17:30)
[2018-09-07 07:10] LABS: GLUCOSE < 20 mg/dl (70-220)
[2018-09-07] MEDS ORDERED: DEXTROSE 50% 50 ML SYRINGE (07:24)
[2018-09-07 07:26] LABS: ANISOCYTOSIS 2+ (0-0); BAND NEUTROPHILS % (M) 12 % (0-4); BURR CELLS 3+ (0-0); LYMPHOCYTES #M 0.7 10^3/ul (0.8-2.9); LYMPHOCYTES % (M) 3 % (15-51); MICROCYTOSIS 1+ (0-0); MONOCYTE #M 1.2 10^3/ul (0.3-0.9); MONOCYTES % (M) 5 % (0-11); MYELOCYTES #M 0.2 10^3/ul (0.0-0.0); MYELOCYTES % (M) 1 % (0-0); PLATELET ESTIMATE SIG DECREASED; POIKILOCYTOSIS 3+ (0-0); POLYCHROMASIA 3+ (0-0); PROMYELOCYTES #M 0.2 10^3/ul (0-0); PROMYELOCYTES % (M) 1 % (0-0); SEG NEUT #M 20.6 10^3/ul (1.6-7.5); SEGMENTED NEUTROPHILS (M) % 78 % (39-77); SMUDGE%M 17 % (0-0)
[2018-09-07] MEDS: DEXTROSE 10% 1,000 ML IV (07:41)
[2018-09-07] MEDS: DEXTROSE 50% 50 ML SYRINGE IV (07:42)
[2018-09-07 08:07] LABS: AADO2 Arterial 117.8 mmHg (7.0-24.0); Allen Test ACCEPTAB; Arterial Base Excess -4.5 mmol/L (-3.0-3); Arterial Blood Gas Oxygen Sat 87.7 mmHG (95.0-98.0); Arterial COHb 3.1 % (0.0-3.0); Arterial Fraction of Oxyhgb 84.5 % (93.0-99.0); Arterial HCO3 19.7 mmol/L (22.0-26.0); Arterial MetHb 0.6 % (0.0-1.5); Arterial pCO2 31.9 mmhg (35-45); MODE VENT - AC; Site Right Radial
[2018-09-07] MEDS: RIFAXIMIN 550 MG TAB PO ×2 (08:42→21:59)
[2018-09-07] MEDS: MIDODRINE 5 MG TAB PO ×3 (08:44→17:30)
[2018-09-07] MEDS: MULTIVIT/CA CARB/B CMPLX/FA TAB PO (08:45)
[2018-09-07] MEDS: BALSAM PERU/CASTOR OIL 60 GM TUBE TOP ×2 (08:45→21:59)
[2018-09-07] MEDS: MEROPENEM 500MG/50 ML (PMX) 50 ML IVPB ×2 (08:46→21:58)
[2018-09-07] MEDS: PHENYLephrine 80 MG in DEXTROSE 5% 242 ML IV (08:51)
[2018-09-07] MEDS: PHYTONADIONE 10 MG/ML INJ SC (09:01)
[2018-09-07 13:42] LABS: DRVVT CONFIRMATION NEGATIVE (NEGATIVE); HEXAGONAL PHASE CONFIRMATION NEGATIVE (NEGATIVE)
[2018-09-07] MEDS: VANCOMYCIN 1 GM 250 ML IVPB (17:30)
[2018-09-07] MEDS: EPOETIN ALFA-EPBX (ESRD) 4,000 UNIT/ML VIAL SC (17:49)
[2018-09-07 19:29] LABS: IMMEDIATE SPIN CROSSMATCH 1
[2018-09-07 22:22] LABS: ERYTHROPOIETIN 22.5 mIU/mL (2.6-18.5)
[2018-09-08] MEDS: DEXTROSE 10% 1,000 ML IV (01:55)
[2018-09-08] MEDS: NORepinephrine 8MG/250 ML (PMX 250 ML IV ×2 (04:42→19:51)
[2018-09-08 05:26] LABS: PLATELET COUNT 47 10^3/UL (140-415)
[2018-09-08 05:36] LABS: WHITE BLOOD COUNT 25.7 10^3/ul (4.8-10.8)
[2018-09-08 05:36] LABS: ABNORMAL IP MESSAGE 1; HEMATOCRIT 19.3 % (42.0-52.0); MEAN CORPUSCULAR HEMOGLOBIN 31.4 pg (29.0-33.0); MEAN CORPUSCULAR HGB CONC 35.8 g/dl (32.0-37.0); MEAN CORPUSCULAR VOLUME 87.7 fl (82.0-101.0); NUCLEATED RED BLOOD CELLS% 0.5 /100WBC (0.0-0.0); PLATELET COUNT 50 10^3/UL (140-415); POSITIVE DIFF @See below; RED CELL DISTRIBUTION WIDTH 17.6 % (11.5-14.5)
[2018-09-08 05:47] LABS: INR 4.25; PROTIME 40.8 Sec (11.9-14.9); PT RATIO 3.2
[2018-09-08] MEDS: ALBUMIN HUMAN 25% 100 ML IV (05:49)
[2018-09-08] MEDS: LACTULOSE 30ML CUP PO ×3 (05:52→21:14)
[2018-09-08 05:55] LABS: ADD MAN DIFF? YES; HEMOGLOBIN 6.9 g/dl (14.0-18.0)
[2018-09-08] MEDS: PHENYLephrine 80 MG in DEXTROSE 5% 242 ML IV (05:56)
[2018-09-08] MEDS: PANTOPRAZOLE 40 MG INJ IV ×2 (06:00→17:26)
[2018-09-08 06:17] LABS: ANION GAP 24 (5-13); BLOOD UREA NITROGEN 30 mg/dl (7-20); CALCIUM 10.6 mg/dl (8.4-10.2); CARBON DIOXIDE 21 mmol/L (21-31); CHLORIDE 98 mmol/L (97-110); CREATININE 3.61 mg/dl (0.61-1.24); Estimated GFR 19 mL/min (>60); GLUCOSE 127 mg/dl (70-220); POTASSIUM 3.5 mmol/L (3.5-5.1); SODIUM 143 mmol/L (135-144); THROMBIN TIME 22.4 SEC (13.8-19.1)
[2018-09-08 08:01] LABS: PARTIAL THROMBOPLASTIN TIME 97.7 Sec (23.0-35.0)
[2018-09-08 08:02] LABS: D-DIMER > 10000.00 ng/ml (<460)
[2018-09-08] MEDS: RIFAXIMIN 550 MG TAB PO ×2 (08:19→21:12)
[2018-09-08] MEDS: MEROPENEM 500MG/50 ML (PMX) 50 ML IVPB ×2 (08:19→21:12)
[2018-09-08] MEDS: MIDODRINE 5 MG TAB PO ×3 (08:20→17:26)
[2018-09-08] MEDS: MULTIVIT/CA CARB/B CMPLX/FA TAB PO (08:20)
[2018-09-08] MEDS: BALSAM PERU/CASTOR OIL 60 GM TUBE TOP ×2 (08:20→21:12)
[2018-09-08 08:45] LABS: ANISOCYTOSIS 2+ (0-0); BAND NEUTROPHILS #M 3.5 10^3/ul (0.0-0.6); BAND NEUTROPHILS % (M) 14 % (0-4); BURR CELLS 2+ (0-0); ELLIPTO 1+ (0-0); EOSINOPHILS % (M) 2 % (0-7); GIANT THROMBO% (M) 1 % (0-0); LYMPHOCYTES #M 3.8 10^3/ul (0.8-2.9); LYMPHOCYTES % (M) 15 % (15-51); MONOCYTE #M 0.7 10^3/ul (0.3-0.9); MONOCYTES % (M) 3 % (0-11); MYELOCYTES #M 0.2 10^3/ul (0.0-0.0); MYELOCYTES % (M) 1 % (0-0); PLATELET ESTIMATE NORMAL; POIKILOCYTOSIS 2+ (0-0); PROMYELOCYTES #M 0.2 10^3/ul (0-0); PROMYELOCYTES % (M) 1 % (0-0); SEG NEUT #M 17.1 10^3/ul (1.6-7.5); SEGMENTED NEUTROPHILS (M) % 63 % (39-77); SMUDGE%M 45 % (0-0); SPHEROCYTES 1+ (0-0); TEAR DROP CELLS 1+ (0-0)
[2018-09-08 11:16] LABS: OCCULT BLOOD STOOL POSITIVE (NEGATIVE)
[2018-09-08] MEDS ORDERED: EPOETIN ALFA-EPBX (ESRD) 10,000 UNIT/ML VIAL SC (12:00)
[2018-09-08 13:33] LABS: IMMEDIATE SPIN CROSSMATCH 1 6
[2018-09-08] MEDS: ACCU-CHEK XX ×2 (17:00→21:00)
[2018-09-09] MEDS: DEXTROSE 10% 1,000 ML IV ×2 (00:35→23:30)
[2018-09-09] MEDS: ACCU-CHEK XX ×6 (01:07→23:50)
[2018-09-09 04:37] LABS: WHITE BLOOD COUNT 23.1 10^3/ul (4.8-10.8)
[2018-09-09 04:37] LABS: ABNORMAL IP MESSAGE 1; HEMATOCRIT 21.4 % (42.0-52.0); HEMOGLOBIN 7.4 g/dl (14.0-18.0); MEAN CORPUSCULAR HEMOGLOBIN 31.1 pg (29.0-33.0); MEAN CORPUSCULAR HGB CONC 34.6 g/dl (32.0-37.0); MEAN CORPUSCULAR VOLUME 89.9 fl (82.0-101.0); MEAN PLATELET VOLUME 12.9 fl (7.4-10.4); NUCLEATED RED BLOOD CELLS% 1.9 /100WBC (0.0-0.0); PLATELET COUNT 48 10^3/UL (140-415); POSITIVE DIFF @See below; RED BLOOD COUNT 2.38 10^6/ul (4.70-6.10); RED CELL DISTRIBUTION WIDTH 18.1 % (11.5-14.5)
[2018-09-09 04:38] LABS: ADD MAN DIFF? YES
[2018-09-09 04:41] LABS: PLATELET COUNT 51 10^3/UL (140-415)
[2018-09-09 05:00] LABS: ANION GAP 17 (5-13); BLOOD UREA NITROGEN 35 mg/dl (7-20); CALCIUM 9.9 mg/dl (8.4-10.2); CARBON DIOXIDE 23 mmol/L (21-31); CHLORIDE 98 mmol/L (97-110); CREATININE 3.82 mg/dl (0.61-1.24); Estimated GFR 18 mL/min (>60); GLUCOSE 134 mg/dl (70-220); POTASSIUM 3.4 mmol/L (3.5-5.1); SODIUM 138 mmol/L (135-144)
[2018-09-09 05:02] LABS: INR 2.95; PROTIME 30.8 Sec (11.9-14.9); PT RATIO 2.4
[2018-09-09 05:03] LABS: THROMBIN TIME 22.8 SEC (13.8-19.1)
[2018-09-09] MEDS: LACTULOSE 30ML CUP PO ×3 (05:18→21:15)
[2018-09-09] MEDS: PHENYLephrine 80 MG in DEXTROSE 5% 242 ML IV ×3 (05:18→23:49)
[2018-09-09] MEDS: PANTOPRAZOLE 40 MG INJ IV ×2 (05:19→17:17)
[2018-09-09] MEDS: NORepinephrine 8MG/250 ML (PMX 250 ML IV ×2 (05:34→20:31)
[2018-09-09 07:41] LABS: D-DIMER > 10000.00 ng/ml (<460); PARTIAL THROMBOPLASTIN TIME 78.4 Sec (23.0-35.0)
[2018-09-09 07:55] LABS: ANISOCYTOSIS 2+ (0-0); BAND NEUTROPHILS #M 3.4 10^3/ul (0.0-0.6); BAND NEUTROPHILS % (M) 15 % (0-4); EOSINOPHILS % (M) 2 % (0-7); ERYTHROBLAST% (NRBC) (M) 5 % (0-0); LYMPHOCYTES #M 3.6 10^3/ul (0.8-2.9); LYMPHOCYTES % (M) 16 % (15-51); MONOCYTE #M 2.3 10^3/ul (0.3-0.9); MONOCYTES % (M) 10 % (0-11); PLATELET ESTIMATE DECREASED; POIKILOCYTOSIS 3+ (0-0); POLYCHROMASIA 2+ (0-0); REACTIVE LYMPHOCYTES #M 0.4 10^3/ul (0.0-0.0); REACTIVE LYMPHOCYTES% (M) 2 % (0-0); SEG NEUT #M 13.5 10^3/ul (1.6-7.5); SEGMENTED NEUTROPHILS (M) % 55 % (39-77); SMUDGE%M 25 % (0-0)
[2018-09-09] MEDS: MEROPENEM 500MG/50 ML (PMX) 50 ML IVPB ×2 (10:02→21:16)
[2018-09-09] MEDS: MIDODRINE 5 MG TAB PO ×3 (10:03→17:18)
[2018-09-09] MEDS: RIFAXIMIN 550 MG TAB PO ×2 (10:03→21:15)
[2018-09-09] MEDS: MULTIVIT/CA CARB/B CMPLX/FA TAB PO (10:03)
[2018-09-09] MEDS: BALSAM PERU/CASTOR OIL 60 GM TUBE TOP ×2 (10:05→21:16)
[2018-09-10] MEDS: PHENYLephrine 80 MG in DEXTROSE 5% 242 ML IV ×5 (05:01→22:46)
[2018-09-10] MEDS: NORepinephrine 32 MG in DEXTROSE 5% 218 ML IV (05:01)
[2018-09-10] MEDS: LACTULOSE 30ML CUP PO ×3 (05:50→21:10)
[2018-09-10] MEDS: PANTOPRAZOLE 40 MG INJ IV ×2 (05:50→18:08)
[2018-09-10 05:51] LABS: PLATELET COUNT 55 10^3/UL (140-415)
[2018-09-10 05:53] LABS: ABNORMAL IP MESSAGE 1; HEMATOCRIT 20.3 % (42.0-52.0); MEAN CORPUSCULAR HEMOGLOBIN 31.5 pg (29.0-33.0); MEAN CORPUSCULAR HGB CONC 34.5 g/dl (32.0-37.0); MEAN CORPUSCULAR VOLUME 91.4 fl (82.0-101.0); PLATELET COUNT 53 10^3/UL (140-415); POSITIVE DIFF @See below; RED BLOOD COUNT 2.22 10^6/ul (4.70-6.10); RED CELL DISTRIBUTION WIDTH 19.3 % (11.5-14.5)
[2018-09-10] MEDS: ACCU-CHEK XX ×3 (05:55→18:29)
[2018-09-10 05:58] LABS: ADD MAN DIFF? YES
[2018-09-10 06:07] LABS: ANION GAP 19 (5-13); BLOOD UREA NITROGEN 41 mg/dl (7-20); CALCIUM 9.5 mg/dl (8.4-10.2); CARBON DIOXIDE 21 mmol/L (21-31); CHLORIDE 97 mmol/L (97-110); CREATININE 4.35 mg/dl (0.61-1.24); Estimated GFR 15 mL/min (>60); GLUCOSE 123 mg/dl (70-220); POTASSIUM 3.8 mmol/L (3.5-5.1); SODIUM 137 mmol/L (135-144)
[2018-09-10 06:09] LABS: VANCOMYCIN,RANDOM 13.3 ug/ml
[2018-09-10 06:39] LABS: INR 3.72; PROTIME 36.8 Sec (11.9-14.9); PT RATIO 2.9
[2018-09-10 06:45] LABS: THROMBIN TIME 24.7 SEC (13.8-19.1)
[2018-09-10 07:25] LABS: D-DIMER > 10000.00 ng/ml (<460)
[2018-09-10 07:27] LABS: PARTIAL THROMBOPLASTIN TIME 93.4 Sec (23.0-35.0)
[2018-09-10] MEDS: MIDODRINE 5 MG TAB PO ×3 (08:23→18:09)
[2018-09-10] MEDS: MEROPENEM 500MG/50 ML (PMX) 50 ML IVPB ×2 (08:23→21:10)
[2018-09-10] MEDS: MULTIVIT/CA CARB/B CMPLX/FA TAB PO (08:23)
[2018-09-10] MEDS: RIFAXIMIN 550 MG TAB PO ×2 (08:23→21:10)
[2018-09-10] MEDS: BALSAM PERU/CASTOR OIL 60 GM TUBE TOP ×2 (08:46→21:10)
[2018-09-10] MEDS: LIDOCAINE 1% (MPF) 5 ML VIAL SC (09:30)
[2018-09-10 10:12] LABS: ANISOCYTOSIS 2+ (0-0); BAND NEUTROPHILS #M 2.5 10^3/ul (0.0-0.6); BAND NEUTROPHILS % (M) 10 % (0-4); BASOPHIL #M 0.7 10^3/ul (0.0-0.0); BASOPHILS % (M) 3 % (0-2); BURR CELLS 3+ (0-0); EOSINOPHILS % (M) 2 % (0-7); ERYTHROBLAST% (NRBC) (M) 6 % (0-0); GIANT THROMBO% (M) 1 % (0-0); HYPOCHROMASIA 1+ (0-0); LYMPHOCYTES #M 3.5 10^3/ul (0.8-2.9); LYMPHOCYTES % (M) 14 % (15-51); MONOCYTE #M 2.5 10^3/ul (0.3-0.9); MONOCYTES % (M) 10 % (0-11); MYELOCYTES #M 0.5 10^3/ul (0.0-0.0); MYELOCYTES % (M) 2 % (0-0); PLATELET ESTIMATE SIG DECREASED; POIKILOCYTOSIS 3+ (0-0); PROMYELOCYTES % (M) 4 % (0-0); SEG NEUT #M 14.4 10^3/ul (1.6-7.5); SEGMENTED NEUTROPHILS (M) % 55 % (39-77); SMUDGE%M 3 % (0-0)
[2018-09-10] MEDS: VANCOMYCIN 1 GM 250 ML IVPB (13:52)
[2018-09-10] MEDS: PHYTONADIONE 10 MG/ML INJ SC (13:52)
[2018-09-10] MEDS: EPOETIN ALFA-EPBX (ESRD) 4,000 UNIT/ML VIAL SC (18:11)
[2018-09-10 18:29] LABS: CREATINE KINASE 66 IU/L (23-200)
[2018-09-10 18:41] LABS: CK INDEX 4.6; TROPONIN-I < 0.012 ng/ml (0.000-0.120)
[2018-09-10 18:44] LABS: CK-MB 3.02 ng/ml (0.0-2.4)
[2018-09-11] MEDS: ACCU-CHEK XX ×4 (00:03→18:00)
[2018-09-11 01:29] LABS: CREATINE KINASE 59 IU/L (23-200)
[2018-09-11 01:39] LABS: CK INDEX 4.1; TROPONIN-I < 0.012 ng/ml (0.000-0.120)
[2018-09-11 01:42] LABS: CK-MB 2.41 ng/ml (0.0-2.4)
[2018-09-11 05:23] LABS: PLATELET COUNT 52 10^3/UL (140-415)
[2018-09-11 05:24] LABS: ABNORMAL IP MESSAGE 1; HEMATOCRIT 18.4 % (42.0-52.0); MEAN CORPUSCULAR HEMOGLOBIN 32.2 pg (29.0-33.0); MEAN CORPUSCULAR HGB CONC 35.3 g/dl (32.0-37.0); MEAN CORPUSCULAR VOLUME 91.1 fl (82.0-101.0); MEAN PLATELET VOLUME 12.6 fl (7.4-10.4); NUCLEATED RED BLOOD CELLS% 1.2 /100WBC (0.0-0.0); PLATELET COUNT 54 10^3/UL (140-415); POSITIVE DIFF @See below; RED BLOOD COUNT 2.02 10^6/ul (4.70-6.10); RED CELL DISTRIBUTION WIDTH 19.2 % (11.5-14.5)
[2018-09-11 05:24] LABS: WHITE BLOOD COUNT 28.6 10^3/ul (4.8-10.8)
[2018-09-11] MEDS: LACTULOSE 30ML CUP PO ×3 (05:39→21:59)
[2018-09-11] MEDS: PANTOPRAZOLE 40 MG INJ IV (05:39)
[2018-09-11 05:41] LABS: ADD MAN DIFF? YES; HEMOGLOBIN 6.5 g/dl (14.0-18.0)
[2018-09-11 05:43] LABS: INR 3.34; PROTIME 33.9 Sec (11.9-14.9); PT RATIO 2.6
[2018-09-11 05:45] LABS: THROMBIN TIME 23.8 SEC (13.8-19.1)
[2018-09-11 05:48] LABS: ALBUMIN 3.1 g/dl (3.3-4.9); ALBUMIN/GLOBULIN RATIO 0.93; ALKALINE PHOSPHATASE 209 IU/L (42-121); ANION GAP 18 (5-13); ASPARTATE AMINO TRANSFERASE 60 IU/L (15-46); BILIRUBIN,INDIRECT 6.4 mg/dl (0-1.1); BILIRUBIN,TOTAL 24.5 mg/dl (0.2-1.3); BLOOD UREA NITROGEN 36 mg/dl (7-20); CALCIUM 9.5 mg/dl (8.4-10.2); CARBON DIOXIDE 21 mmol/L (21-31); CHLORIDE 98 mmol/L (97-110); CREATINE KINASE 56 IU/L (23-200); CREATININE 3.44 mg/dl (0.61-1.24); Estimated GFR 20 mL/min (>60); GLUCOSE 115 mg/dl (70-220); POTASSIUM 3.7 mmol/L (3.5-5.1); SODIUM 137 mmol/L (135-144); TOTAL PROTEIN 6.4 g/dl (6.1-8.1)
[2018-09-11 06:00] LABS: CK INDEX 4.4; TROPONIN-I 0.012 ng/ml (0.000-0.120)
[2018-09-11 06:01] LABS: ALANINE AMINOTRANSFERASE < 6 IU/L (13-69)
[2018-09-11 06:02] LABS: CK-MB 2.44 ng/ml (0.0-2.4)
[2018-09-11 06:16] LABS: D-DIMER > 10000.00 ng/ml (<460)
[2018-09-11 06:17] LABS: PARTIAL THROMBOPLASTIN TIME 85.8 Sec (23.0-35.0)
[2018-09-11 07:09] LABS: PHOSPHORUS 3.1 mg/dl (2.5-4.9)
[2018-09-11] MEDS: MULTIVIT/CA CARB/B CMPLX/FA TAB PO (08:47)
[2018-09-11] MEDS: MEROPENEM 500MG/50 ML (PMX) 50 ML IVPB ×2 (08:47→21:56)
[2018-09-11] MEDS: RIFAXIMIN 550 MG TAB PO ×2 (08:47→21:56)
[2018-09-11] MEDS: BALSAM PERU/CASTOR OIL 60 GM TUBE TOP ×2 (08:48→21:57)
[2018-09-11 09:05] LABS: ANISOCYTOSIS 2+ (0-0); BAND NEUTROPHILS #M 1.4 10^3/ul (0.0-0.6); BAND NEUTROPHILS % (M) 5 % (0-4); BASOPHIL #M 0.2 10^3/ul (0.0-0.0); BASOPHILS % (M) 1 % (0-2); BURR CELLS 1+ (0-0); EOSINOPHILS % (M) 3 % (0-7); ERYTHROBLAST% (NRBC) (M) 2 % (0-0); GIANT THROMBO% (M) 1 % (0-0); HYPOCHROMASIA 1+ (0-0); LYMPHOCYTES #M 3.1 10^3/ul (0.8-2.9); LYMPHOCYTES % (M) 11 % (15-51); METAMYELOCYTES #M 0.5 10^3/ul (0.0-0.0); METAMYELOCYTES %M 2 % (0-0); MONOCYTE #M 2.8 10^3/ul (0.3-0.9); MONOCYTES % (M) 10 % (0-11); OVALOCYTES 1+ (0-0); PLATELET ESTIMATE DECREASED; POIKILOCYTOSIS 2+ (0-0); POLYCHROMASIA 1+ (0-0); PROMYELOCYTES #M 0.2 10^3/ul (0-0); PROMYELOCYTES % (M) 1 % (0-0); SCHISTOCYTES 1+ (0-0); SEG NEUT #M 19.6 10^3/ul (1.6-7.5); SEGMENTED NEUTROPHILS (M) % 67 % (39-77); SMUDGE%M 3 % (0-0)
[2018-09-11] MEDS: PHENYLephrine 80 MG in DEXTROSE 5% 242 ML IV (09:11)
[2018-09-11] MEDS: MIDODRINE 10 MG TABLET PO ×3 (10:18→17:22)
[2018-09-11] MEDS: PHYTONADIONE 5 MG in DEXTROSE 5% 50 ML IVPB ×2 (12:43→17:22)
[2018-09-11] MEDS: NORepinephrine 32 MG in DEXTROSE 5% 218 ML IV (17:24)
[2018-09-11 20:08] LABS: IMMEDIATE SPIN CROSSMATCH 1
[2018-09-12 05:28] LABS: WHITE BLOOD COUNT 30.8 10^3/ul (4.8-10.8)
[2018-09-12 05:28] LABS: PLATELET COUNT 54 10^3/UL (140-415)
[2018-09-12 05:29] LABS: ABNORMAL IP MESSAGE 1; HEMATOCRIT 18.3 % (42.0-52.0); MEAN CORPUSCULAR HEMOGLOBIN 31.6 pg (29.0-33.0); MEAN CORPUSCULAR HGB CONC 35.5 g/dl (32.0-37.0); MEAN CORPUSCULAR VOLUME 88.8 fl (82.0-101.0); MEAN PLATELET VOLUME 12.3 fl (7.4-10.4); NUCLEATED RED BLOOD CELLS% 1.4 /100WBC (0.0-0.0); PLATELET COUNT 55 10^3/UL (140-415); POSITIVE DIFF @See below; RED BLOOD COUNT 2.06 10^6/ul (4.70-6.10); RED CELL DISTRIBUTION WIDTH 18.4 % (11.5-14.5)
[2018-09-12 05:45] LABS: INR 2.35; PROTIME 25.8 Sec (11.9-14.9)
[2018-09-12 05:46] LABS: PARTIAL THROMBOPLASTIN TIME 67.7 Sec (23.0-35.0)
[2018-09-12 05:50] LABS: PHOSPHORUS 3.5 mg/dl (2.5-4.9)
[2018-09-12 05:55] LABS: ALANINE AMINOTRANSFERASE 15 IU/L (13-69); ALBUMIN 2.9 g/dl (3.3-4.9); ALBUMIN/GLOBULIN RATIO 0.85; ALKALINE PHOSPHATASE 194 IU/L (42-121); ANION GAP 17 (5-13); ASPARTATE AMINO TRANSFERASE 63 IU/L (15-46); BILIRUBIN,INDIRECT 5.6 mg/dl (0-1.1); BILIRUBIN,TOTAL 22.3 mg/dl (0.2-1.3); BLOOD UREA NITROGEN 44 mg/dl (7-20); CALCIUM 9.4 mg/dl (8.4-10.2); CARBON DIOXIDE 21 mmol/L (21-31); CHLORIDE 98 mmol/L (97-110); CREATININE 3.68 mg/dl (0.61-1.24); Estimated GFR 18 mL/min (>60); GLUCOSE 100 mg/dl (70-220); SODIUM 136 mmol/L (135-144); TOTAL PROTEIN 6.3 g/dl (6.1-8.1)
[2018-09-12] MEDS: ACCU-CHEK XX ×4 (05:56→17:37)
[2018-09-12] MEDS: LACTULOSE 30ML CUP PO ×3 (05:56→23:00)
[2018-09-12] MEDS: PHENYLephrine 80 MG in DEXTROSE 5% 242 ML IV ×2 (06:00→22:04)
[2018-09-12 06:09] LABS: ADD MAN DIFF? YES; HEMOGLOBIN 6.5 g/dl (14.0-18.0)
[2018-09-12 06:10] LABS: POTASSIUM 3.6 mmol/L (3.5-5.1)
[2018-09-12 06:36] LABS: THROMBIN TIME 22.6 SEC (13.8-19.1)
[2018-09-12 06:53] LABS: D-DIMER > 10000.00 ng/ml (<460)
[2018-09-12 08:00] LABS: ANISOCYTOSIS 2+ (0-0); BAND NEUTROPHILS #M 6.4 10^3/ul (0.0-0.6); BAND NEUTROPHILS % (M) 21 % (0-4); BURR CELLS 2+ (0-0); EOSINOPHILS % (M) 4 % (0-7); GIANT THROMBO% (M) 1 % (0-0); HYPOCHROMASIA 1+ (0-0); LYMPHOCYTES #M 4.6 10^3/ul (0.8-2.9); LYMPHOCYTES % (M) 15 % (15-51); METAMYELOCYTES #M 0.3 10^3/ul (0.0-0.0); METAMYELOCYTES %M 1 % (0-0); MONOCYTE #M 1.5 10^3/ul (0.3-0.9); MONOCYTES % (M) 5 % (0-11); MYELOCYTES #M 3.3 10^3/ul (0.0-0.0); MYELOCYTES % (M) 11 % (0-0); OVALOCYTES 1+ (0-0); PLATELET ESTIMATE DECREASED; POIKILOCYTOSIS 3+ (0-0); POLYCHROMASIA 3+ (0-0); SCHISTOCYTES 1+ (0-0); SEG NEUT #M 15.2 10^3/ul (1.6-7.5); SEGMENTED NEUTROPHILS (M) % 43 % (39-77); SMUDGE%M 9 % (0-0)
[2018-09-12] MEDS: RIFAXIMIN 550 MG TAB PO ×2 (08:59→20:59)
[2018-09-12] MEDS: MEROPENEM 500MG/50 ML (PMX) 50 ML IVPB ×2 (08:59→20:59)
[2018-09-12] MEDS: PHYTONADIONE 10 MG in DEXTROSE 5% 50 ML IVPB (08:59)
[2018-09-12] MEDS: MULTIVIT/CA CARB/B CMPLX/FA TAB PO (09:00)
[2018-09-12] MEDS: MIDODRINE 10 MG TABLET PO ×3 (09:00→17:33)
[2018-09-12] MEDS: BALSAM PERU/CASTOR OIL 60 GM TUBE TOP ×2 (09:00→20:59)
[2018-09-12] MEDS: ALBUMIN HUMAN 25% 100 ML IV (11:06)
[2018-09-12 15:53] LABS: IMMEDIATE SPIN CROSSMATCH 1
[2018-09-12 17:23] LABS: HEMATOCRIT 23.1 % (42.0-52.0); HEMOGLOBIN 8.1 g/dl (14.0-18.0)
[2018-09-12 17:29] LABS: IMMEDIATE SPIN CROSSMATCH 1 4
[2018-09-12] MEDS: LANSOPRAZOLE 30 MG CAP NGT (17:34)
[2018-09-12] MEDS: EPOETIN ALFA-EPBX (ESRD) 4,000 UNIT/ML VIAL SC (17:36)
[2018-09-13] MEDS: ACCU-CHEK XX ×4 (00:58→17:15)
[2018-09-13] MEDS: NORepinephrine 32 MG in DEXTROSE 5% 218 ML IV (01:23)
[2018-09-13 05:19] LABS: PLATELET COUNT 59 10^3/UL (140-415)
[2018-09-13 05:27] LABS: ABNORMAL IP MESSAGE 1; HEMATOCRIT 20.4 % (42.0-52.0); HEMOGLOBIN 7.1 g/dl (14.0-18.0); MEAN CORPUSCULAR HEMOGLOBIN 31.3 pg (29.0-33.0); MEAN CORPUSCULAR HGB CONC 34.8 g/dl (32.0-37.0); MEAN CORPUSCULAR VOLUME 89.9 fl (82.0-101.0); MEAN PLATELET VOLUME 12.3 fl (7.4-10.4); NUCLEATED RED BLOOD CELLS% 2.6 /100WBC (0.0-0.0); PLATELET COUNT 58 10^3/UL (140-415); POSITIVE DIFF @See below; RED BLOOD COUNT 2.27 10^6/ul (4.70-6.10); RED CELL DISTRIBUTION WIDTH 17.4 % (11.5-14.5)
[2018-09-13 05:27] LABS: WHITE BLOOD COUNT 30.5 10^3/ul (4.8-10.8)
[2018-09-13 05:35] LABS: PHOSPHORUS 2.9 mg/dl (2.5-4.9)
[2018-09-13 05:39] LABS: ALANINE AMINOTRANSFERASE 8 IU/L (13-69); ALBUMIN/GLOBULIN RATIO 0.85; ALKALINE PHOSPHATASE 190 IU/L (42-121); ANION GAP 16 (5-13); ASPARTATE AMINO TRANSFERASE 76 IU/L (15-46); BILIRUBIN,INDIRECT 6.5 mg/dl (0-1.1); BILIRUBIN,TOTAL 22.2 mg/dl (0.2-1.3); BLOOD UREA NITROGEN 37 mg/dl (7-20); CALCIUM 9.4 mg/dl (8.4-10.2); CARBON DIOXIDE 22 mmol/L (21-31); CHLORIDE 98 mmol/L (97-110); CREATININE 3.09 mg/dl (0.61-1.24); Estimated GFR 22 mL/min (>60); GLUCOSE 93 mg/dl (70-220); POTASSIUM 3.6 mmol/L (3.5-5.1); PROTIME 28.7 Sec (11.9-14.9); PT RATIO 2.2; SODIUM 136 mmol/L (135-144); TOTAL PROTEIN 6.5 g/dl (6.1-8.1)
[2018-09-13 05:39] LABS: VANCOMYCIN,RANDOM 11.2 ug/ml
[2018-09-13] MEDS: LACTULOSE 30ML CUP PO ×3 (05:40→20:47)
[2018-09-13] MEDS: LANSOPRAZOLE 30 MG CAP NGT ×2 (05:40→17:14)
[2018-09-13 05:41] LABS: PARTIAL THROMBOPLASTIN TIME 65.6 Sec (23.0-35.0); THROMBIN TIME 22.2 SEC (13.8-19.1)
[2018-09-13 06:15] LABS: ADD MAN DIFF? YES
[2018-09-13 07:43] LABS: D-DIMER > 10000.00 ng/ml (<460)
[2018-09-13] MEDS: MIDODRINE 10 MG TABLET PO ×3 (08:21→17:14)
[2018-09-13] MEDS: MULTIVIT/CA CARB/B CMPLX/FA TAB PO (08:22)
[2018-09-13] MEDS: RIFAXIMIN 550 MG TAB PO ×2 (08:22→20:46)
[2018-09-13] MEDS: MEROPENEM 500MG/50 ML (PMX) 50 ML IVPB (08:22)
[2018-09-13] MEDS: BALSAM PERU/CASTOR OIL 60 GM TUBE TOP ×2 (08:29→20:46)
[2018-09-13] MEDS: PHYTONADIONE 10 MG in DEXTROSE 5% 50 ML IVPB (08:57)
[2018-09-13 09:40] LABS: IMMEDIATE SPIN CROSSMATCH 1
[2018-09-13] MEDS: VANCOMYCIN HCL 1.25 GM in SOD CHLORIDE 0.9% 250 ML IVPB (09:47)
[2018-09-13 10:32] LABS: ANISOCYTOSIS 2+ (0-0); BAND NEUTROPHILS #M 2.1 10^3/ul (0.0-0.6); BAND NEUTROPHILS % (M) 7 % (0-4); BURR CELLS 2+ (0-0); LYMPHOCYTES #M 5.4 10^3/ul (0.8-2.9); LYMPHOCYTES % (M) 18 % (15-51); MONOCYTE #M 1.2 10^3/ul (0.3-0.9); MONOCYTES % (M) 4 % (0-11); MYELOCYTES #M 0.3 10^3/ul (0.0-0.0); MYELOCYTES % (M) 1 % (0-0); PLATELET ESTIMATE SIG DECREASED; POIKILOCYTOSIS 3+ (0-0); PROMYELOCYTES #M 0.6 10^3/ul (0-0); PROMYELOCYTES % (M) 2 % (0-0); SEG NEUT #M 21.4 10^3/ul (1.6-7.5); SEGMENTED NEUTROPHILS (M) % 68 % (39-77); SMUDGE%M 1 % (0-0); TARGET CELLS 1+ (0-0)
[2018-09-13 12:02] LABS: INR 2.21; PROTIME 24.6 Sec (11.9-14.9); PT RATIO 1.9
[2018-09-13] MEDS: PHENYLephrine 80 MG in DEXTROSE 5% 242 ML IV (12:20)
[2018-09-14] MEDS: PHENYLephrine 80 MG in DEXTROSE 5% 242 ML IV ×2 (04:51→18:52)
[2018-09-14 05:25] LABS: PLATELET COUNT 70 10^3/UL (140-415)
[2018-09-14] MEDS: LACTULOSE 30ML CUP PO ×2 (05:39→12:55)
[2018-09-14 05:48] LABS: ABNORMAL IP MESSAGE 1; HEMATOCRIT 21.4 % (42.0-52.0); HEMOGLOBIN 7.4 g/dl (14.0-18.0); MEAN CORPUSCULAR HEMOGLOBIN 31.4 pg (29.0-33.0); MEAN CORPUSCULAR HGB CONC 34.6 g/dl (32.0-37.0); MEAN CORPUSCULAR VOLUME 90.7 fl (82.0-101.0); MEAN PLATELET VOLUME 12.3 fl (7.4-10.4); NUCLEATED RED BLOOD CELLS% 3.3 /100WBC (0.0-0.0); PLATELET COUNT 73 10^3/UL (140-415); POSITIVE DIFF @See below; RED BLOOD COUNT 2.36 10^6/ul (4.70-6.10); RED CELL DISTRIBUTION WIDTH 17.3 % (11.5-14.5)
[2018-09-14] MEDS: LANSOPRAZOLE 30 MG CAP NGT ×2 (05:49→18:38)
[2018-09-14 05:50] LABS: INR 2.54; PROTIME 27.4 Sec (11.9-14.9); PT RATIO 2.1
[2018-09-14 05:51] LABS: PARTIAL THROMBOPLASTIN TIME 63.8 Sec (23.0-35.0); THROMBIN TIME 22.5 SEC (13.8-19.1)
[2018-09-14] MEDS: ACCU-CHEK XX ×4 (05:51→18:38)
[2018-09-14 05:53] LABS: MAGNESIUM 2.1 mg/dl (1.7-2.5)
[2018-09-14 05:53] LABS: PHOSPHORUS 3.6 mg/dl (2.5-4.9)
[2018-09-14 05:54] LABS: ADD MAN DIFF? YES
[2018-09-14 05:57] LABS: INR 2.56; PROTIME 27.6 Sec (11.9-14.9); PT RATIO 2.2
[2018-09-14 05:58] LABS: PARTIAL THROMBOPLASTIN TIME 62.8 Sec (23.0-35.0)
[2018-09-14 05:59] LABS: ALBUMIN/GLOBULIN RATIO 0.81; ANION GAP 17 (5-13); Estimated GFR 20 mL/min (>60)
[2018-09-14 06:01] LABS: ALANINE AMINOTRANSFERASE 12 IU/L (13-69); ALKALINE PHOSPHATASE 246 IU/L (42-121); ASPARTATE AMINO TRANSFERASE 85 IU/L (15-46); BILIRUBIN,TOTAL 22.7 mg/dl (0.2-1.3); BLOOD UREA NITROGEN 44 mg/dl (7-20); CALCIUM 9.2 mg/dl (8.4-10.2); CARBON DIOXIDE 23 mmol/L (21-31); CHLORIDE 95 mmol/L (97-110); CREATININE 3.46 mg/dl (0.61-1.24); GLUCOSE 158 mg/dl (70-220); POTASSIUM 3.5 mmol/L (3.5-5.1); SODIUM 135 mmol/L (135-144)
[2018-09-14 06:02] LABS: BILIRUBIN,INDIRECT 6.3 mg/dl (0-1.1); TOTAL PROTEIN 6.7 g/dl (6.1-8.1)
[2018-09-14 06:16] LABS: D-DIMER > 10000.00 ng/ml (<460)
[2018-09-14] MEDS: BALSAM PERU/CASTOR OIL 60 GM TUBE TOP (09:00)
[2018-09-14 09:09] LABS: INR 2.55; PROTIME 27.5 Sec (11.9-14.9); PT RATIO 2.1
[2018-09-14] MEDS: RIFAXIMIN 550 MG TAB PO (09:58)
[2018-09-14] MEDS: MULTIVIT/CA CARB/B CMPLX/FA TAB PO (09:58)
[2018-09-14] MEDS: ALBUMIN HUMAN 25% 100 ML IV ×3 (10:00→17:24)
[2018-09-14] MEDS: MIDODRINE 10 MG TABLET PO ×3 (10:04→18:37)
[2018-09-14] MEDS: PHYTONADIONE 10 MG in DEXTROSE 5% 50 ML IVPB (10:04)
[2018-09-14 11:06] LABS: IMMEDIATE SPIN CROSSMATCH 1 2
[2018-09-14 11:54] LABS: ANISOCYTOSIS 2+ (0-0); BAND NEUTROPHILS #M 2.3 10^3/ul (0.0-0.6); BAND NEUTROPHILS % (M) 7 % (0-4); BURR CELLS 1+ (0-0); EOSINOPHILS % (M) 2 % (0-7); ERYTHROBLAST% (NRBC) (M) 4 % (0-0); LYMPHOCYTES #M 2.6 10^3/ul (0.8-2.9); LYMPHOCYTES % (M) 8 % (15-51); MONOCYTE #M 2.3 10^3/ul (0.3-0.9); MONOCYTES % (M) 7 % (0-11); MYELOCYTES #M 0.6 10^3/ul (0.0-0.0); MYELOCYTES % (M) 2 % (0-0); PLATELET ESTIMATE SIG DECREASED; POIKILOCYTOSIS 3+ (0-0); POLYCHROMASIA 1+ (0-0); SEG NEUT #M 25.2 10^3/ul (1.6-7.5); SEGMENTED NEUTROPHILS (M) % 74 % (39-77); SMUDGE%M 2 % (0-0); TARGET CELLS 1+ (0-0); TOXIC GRANULATION 1+ (0-0)
[2018-09-14] MEDS: MEROPENEM 500MG/50 ML (PMX) 50 ML IVPB (12:55)
[2018-09-14] MEDS: EPOETIN ALFA-EPBX (ESRD) 4,000 UNIT/ML VIAL SC (18:38)
== END 2018-09-14 20:20 | disposition short-term general hospital (02) | DRG 432 ==
LOC: ICU 09-05 06:02 → 6WM 22:17 → ICU 09-05 06:02
PROC: 30233N1 Transfusion of Nonautologous Red Blood Cells into Peripheral Vein, Percutaneous Approach (ICD-10-PCS; principal; 2018-08-30)
PROC: 5A1D70Z Performance of Urinary Filtration, Intermittent, Less than 6 Hours Per Day (ICD-10-PCS; 2018-08-31)
PROC: 30233M1 Transfusion of Nonautologous Plasma Cryoprecipitate into Peripheral Vein, Percutaneous Approach (ICD-10-PCS; 2018-09-04)
PROC: 0BH17EZ Insertion of Endotracheal Airway into Trachea, Via Natural or Artificial Opening (ICD-10-PCS; 2018-09-05)
PROC: 5A1955Z Respiratory Ventilation, Greater than 96 Consecutive Hours (ICD-10-PCS; 2018-09-05)
PROC: 0W9G3ZZ Drainage of Peritoneal Cavity, Percutaneous Approach (ICD-10-PCS; 2018-09-05)
PROC: 30233K1 Transfusion of Nonautologous Frozen Plasma into Peripheral Vein, Percutaneous Approach (ICD-10-PCS; 2018-09-05)
PROC: 02HV33Z Insertion of Infusion Device into Superior Vena Cava, Percutaneous Approach (ICD-10-PCS; 2018-09-10)
DX: K70.31 Alcoholic cirrhosis of liver with ascites (principal); A41.9 Sepsis, unspecified organism; N18.6 End stage renal disease; K72.00 Acute and subacute hepatic failure without coma; G92 Toxic encephalopathy; R65.21 Severe sepsis with septic shock; J96.01 Acute respiratory failure with hypoxia; K65.2 Spontaneous bacterial peritonitis; J18.9 Pneumonia, unspecified organism; I12.0 Hypertensive chronic kidney disease with stage 5 chronic kidney disease or end stage renal disease; D68.4 Acquired coagulation factor deficiency; M48.56XA Collapsed vertebra, not elsewhere classified, lumbar region, initial encounter for fracture; J91.8 Pleural effusion in other conditions classified elsewhere; D69.9 Hemorrhagic condition, unspecified; D63.1 Anemia in chronic kidney disease; D63.8 Anemia in other chronic diseases classified elsewhere; D69.59 Other secondary thrombocytopenia; E16.1 Other hypoglycemia; E87.70 Fluid overload, unspecified; I95.89 Other hypotension; K72.10 Chronic hepatic failure without coma; M47.816 Spondylosis without myelopathy or radiculopathy, lumbar region; N47.2 Paraphimosis; N45.1 Epididymitis; R19.5 Other fecal abnormalities; Z99.2 Dependence on renal dialysis; Z66 Do not resuscitate; Z87.891 Personal history of nicotine dependence
CPT/HCPCS: 31500; 36430; 36569; 36600; 71045; 72128; 72131; 72149; 76870; 76937; 80048; 80053; 80202; 82042; 82105; 82140; 82270; 82550; 82553; 82607; 82668; 82728; 82746; 82803; 82945; 82962; 83540; 83605; 83615; 83735; 84100; 84157; 84484; 85014; 85018; 85025; 85049; 85335; 85362; 85378; 85384; 85610; 85613; 85670; 85730; 86644; 86850; 86900; 86901; 86920; 87040-91; 87070; 87081; 87102; 87116; 87252; 87340; 88104; 88305; 89051; 90935; 93005; 93306; 94002; 94003; 94640; 94664; 94770